=== PATIENT | female | born 1985 | race Caucasian/White ===

== ENCOUNTER 2021-08-31 17:31 | Inpatient (IN) | payer SELFPAY ==
[~2021-08-31] VITALS: Ht 170.2 cm; Wt 46.1 kg
--- NOTE | 2021-09-01 00:52 | NUR ---
Patient woke up and stated that she wanted to leave. I told her that we had medication to help her through withdrawal if she stayed the night. Patient continued to insist on leaving. I called DR. Martin and he spoke with patient on the phone. I could here him explain in detail the dangers of leaving without treatment. Patient again stated that she wanted to leave. I prepared the AMA form and explained to the patient the she risked exacerbation of her systems and, in the worse case scenario, without further monitoring and treatment. I then removed her central line intact and dressed the site with a tegaderm and gauze pressure dressing. I asked the patient to stay while i monitored the site but she refused, instead emphasizing that they must be alert to an seepage or spotting around the gauze with instrucitons not to remove the dressing for 24 hours. I also noted that they could return at any time and encouraged them to seek medical treatement if they had any concerns on their way home to [place]. The AMA form was signed and a copy provided to the patient. Security escorted them to their care.
== END 2021-09-01 00:50 | disposition left against medical advice (07) | DRG 378 ==
LOC: ED 17:31 → CCU 20:56
PROVIDERS: ADMIT Internal Medicine; ATTEND Internal Medicine
PROC: 30233N1 Transfusion of Nonautologous Red Blood Cells into Peripheral Vein, Percutaneous Approach (ICD-10-PCS; principal; 2021-08-31)
PROC: 02HV33Z Insertion of Infusion Device into Superior Vena Cava, Percutaneous Approach (ICD-10-PCS; 2021-08-31)
DX: K92.0 Hematemesis (principal); R65.10 Systemic inflammatory response syndrome (SIRS) of non-infectious origin without acute organ dysfunction; F11.20 Opioid dependence, uncomplicated; Z20.822 Contact with and (suspected) exposure to COVID-19; E87.6 Hypokalemia; F10.20 Alcohol dependence, uncomplicated
CPT/HCPCS: 36415; 36556; 51701; 71045; 74177; 80053; 81001; 83605; 83690; 83735; 84703; 85025; 86705; 86803; 86850; 86900; 86901; 86922; 87536; 99285-25; C9113; J1790; J2405; J2550; J3480; J7030; J7060; J7121; Q9967; U0003